=== PATIENT | male | born 1945 | race Caucasian/White ===

== ENCOUNTER 2016-12-30 11:23 | Emergency (ER) | payer MEDICARE, OTHER ==
--- NOTE | 2016-12-30 12:14 | Emergency Department Record ---
History of Present Illness - General Chief complaint: Rectal bleeding Stated complaint: RECTAL BLEEDING Time Seen by Provider: 12/30/16 12:00 Source: Patient Mode of Arrival: Ambulatory Limitations: No limitations - History of Present Illness Initial comments: The patient is here due to having rectal bleeding for 2 days. He has been having the bright red blood in the bowl and when he is wiping with BM's for the last 2 days. He denies any AP, nausea, vomiting, or dizziness. This morning he did have a lot of bright red blood when not having a BM and that was associated with lower abdominal cramping. The patient is not on any blood thinners and does take a baby ASA daily. He did have a similar problem about 2.5 years ago and had a Colonoscopy by Dr. Coley which demonstrated bleeding internal hemorrhoids. MD complaint: Blood on toilet paper, Blood streaked stool, Gross hematochezia Onset/Timin -: Days(s) Radiation: None Quality: Painless Improves with: None Worsens with: None Context: History of GI bleed Associated Symptoms: Abdominal pain - Related Data Home Medications Medication Instructions Recorded Confirmed Last Taken Citalopram Hydrobromide [Celexa] 10 mg PO QHS 04/27/14 12/30/16 12/29/16 Fluticasone Propionate [Flonase] 16 gm NS DAILY PRN 04/27/14 12/30/16 12/30/16 Metformin HCl [Metformin HCl] 1,000 mg PO BID 04/27/14 12/30/16 12/30/16 Metoprolol Succinate 50 mg PO QHS 04/27/14 12/30/16 12/29/16 Ramipril [Altace] 10 mg PO BID 04/27/14 12/30/16 12/30/16 Trazodone HCl 150 mg PO QHS 04/27/14 12/30/16 12/29/16 Hydrocodone/Acetaminophen 1 tab PO ASDIR PRN 05/22/14 12/30/16 12/30/16 [Hydrocodon-Acetaminophn 10-325] Aspirin [Aspirin EC] 325 mg PO DAILY 07/17/14 12/30/16 12/30/16 Multivitamin [Multi-Vitamin Daily] 1 each PO DAILY 11/09/14 04/24/17 04/24/17 Pyridoxine HCl [Vitamin B-6] 250 mg PO DAILY 07/17/14 12/30/16 12/30/16 Ibuprofen [Motrin 400Mg] 400 mg PO BID 12/30/16 12/30/16 12/30/16 Previous Rx's Medication Instructions Recorded Hydrocortisone Acetate [Anusol-Hc] 25 mg RC BID #20 supp.rect 12/30/16 Allergies Allergy/AdvReac Type Severity Reaction Status Date / Time ceftriaxone sodium Allergy HIVES Verified 07/17/14 08:03 [From Rocephin] ciprofloxacin Allergy HIVES Verified 07/17/14 08:03 hydromorphone HCl Allergy HIVES Verified 07/17/14 08:03 [From Dilaudid] Travel Screening - Travel/Exposure Within Last 30 Days Have you traveled within the last 30 days?: No - Travel/Exposure Within Last Year Have you traveled outside the [place] in the last year?: No - Additonal Travel Details Have you been exposed to anyone with a communicable illness?: No Review of Systems Constitutional: Denies: Chills, Fever Eyes: Denies: Eye discharge ENT: Denies: Congestion Respiratory: Denies: Cough, Dyspnea Past Medical History - SOCIAL HISTORY Smoking Status: Former smoker Alcohol Use: None Drug Use: None - RESPIRATORY Hx Respiratory Disorders: Yes Hx Bronchitis: Yes Hx Sleep Apnea: Yes Comment:: left lower lobe issues - CARDIOVASCULAR Hx Cardio Disorders: Yes Hx CHF: Yes Hx Heart Attack: Yes (x4) - NEURO Hx Neuro Disorders: No - GI Hx GI Disorders: No - Hx Genitourinary Disorders: No Hx Kidney Stones: Yes Comment:: recent 8 mm stone with sugery - ENDOCRINE Hx Endocrine Disorders: Yes Hx Diabetes: Yes (II) - MUSCULOSKELETAL Hx Musculoskeletal Disorders: Yes Hx Arthritis: Yes - PSYCH Hx Psych Problems: Yes Hx Depression: Yes - HEMATOLOGY/ONCOLOGY Hx Hematology/Oncology Disorders: No Family Medical History Any Significant Family History?: No Hx Cancer: Mother *Cancer Comment: breast cancer, brain tumor Hx Heart Disease: Father, Brother/Sister *Heart Comment: Father- CHF, Sister- CHF Physical Exam - General General Appearance: Alert, Oriented x3, Cooperative, No acute distress - Head Head exam: Atraumatic, Normocephalic, Normal inspection - Eye Eye exam: Normal appearance, PERRL - Neck Neck exam: Normal inspection, Full ROM. negative: Tenderness - Respiratory Respiratory exam: Normal lung sounds bilaterally. negative: Respiratory distress - Cardiovascular Cardiovascular Exam: Regular rate, Normal rhythm, Normal heart sounds - GI/Abdominal GI/Abdominal exam: Soft, Normal bowel sounds. negative: Distended, Guarding, Rebound, Rigid, Tenderness - Rectal Rectal exam: Heme (+) stool, Hemorrhoids (There are inflamed and bleeding internal hemorrhoids that are almost prolapsing out of the anus. That appears to be the source of his bleeding.) - Extremities Extremities exam: Normal inspection, Full ROM, Normal capillary refill. negative: Tenderness Course Vital Signs 12/30/16 11:46 Temperature 97.9 F Pulse Rate 60 Respiratory 20 Rate Blood Pressure 148/67 Pulse Ox 95 - Reevaluation(s) Reevaluation #1: The patient is doing very well at this time. He denies any pain or discomfort and is resting with no complaints. I did discuss the lab results and CT with the patient and family. If he continues to do well he will need an outpatient Colonoscopy later this week. 12/30/16 13:27 Reevaluation #2: The patient is doing very well at this time. He denies any AP, dizziness or weakness. He has not had any further bleeding in over 3 hours now. I did explain to him that I do feel the bleeding is most likely due to the internal hemorrhoids which is similar to the episode in 2014. I have been in contact with Dr. Coley who will be scheduling him for a Colonoscopy very soon. 12/30/16 14:18 Medical Decision Making - Data Complexity MDM Data: Labs Ordered and/or Reviewed, X-Ray Ordered and/or Reviewed - Lab Data Result diagrams: 12/30/16 12:27 12/30/16 12:27 - Radiology Data Radiology results: Report reviewed (CT: Mild descending colon diverticulosis with possible wall thickening in the rectum.) Disposition Disposition: Discharge Clinical Impression: Internal and external bleeding hemorrhoids Disposition: Home, Self-Care Condition: (1) Good Instructions: Rectal Bleeding (ED) Additional Instructions: Please take the Anusol HC as directed and hold your ASA for 7 days. Please follow up with Dr. Coley as directed for the Colonoscopy. Please return to the ER for any increased bleeding, or any AP, fever, weakness or dizziness. Prescriptions: Hydrocortisone Acetate [Anusol-Hc] 25 mg RC BID #20 supp.rect Forms: Patient Portal Access Time of Disposition: 14:26
[2016-12-30 12:37] LABS: BASO % 0.2 % (0-6); GRAN % 69.3 % (47-80); HEMATOCRIT 42.7 % (42.0-52.0); HEMOGLOBIN 13.9 gm/dl (14.0-18.0); LYMPH % 19.4 % (16-45); MEAN CORPUSCULAR HGB CONC 32.6 g/dl (32-36); MEAN PLATELET VOLUME 12.6 fl (7.4-10.4); MONO % 9.1 % (0-9); PLATELET COUNT 249 K/uL (130-400); RED CELL DISTRIBUTION WIDTH 13.9 % (11.5-14.5); WHITE BLOOD COUNT W/O DIFF 12.5 K/uL (4.2-12.2)
[2016-12-30 12:38] LABS: MEAN CORPUSCULAR HEMOGLOBIN 31.5 pg (27-33)
[2016-12-30 12:48] LABS: ALBUMIN 4.1 gm/dL (3.5-5.0); ALKALINE PHOSPHATASE 77 U/L (38-126); ALT/SGPT 29 U/L (21-72); ANION GAP 10.6 (7-16); AST/SGOT 30 U/L (17-59); BILIRUBIN,TOTAL 0.33 mg/dL (0.2-1.3); BLOOD UREA NITROGEN 18 mg/dL (9-20); CARBON DIOXIDE 25.4 mmol/L (22-30); CREATININE 0.5 mg/dL (0.66-1.25); EST GLOMERULAR FILTRATION RATE > 60 ml/min; GLUCOSE,RANDOM 149 mg/dL (70-110); INR 1.06; TOTAL PROTEIN 7.2 gm/dL (6.3-8.2)
== END 2016-12-30 14:39 | disposition home or self-care (01) ==
LOC: ER 11:23
DX: K64.8 Other hemorrhoids (principal); K64.9 Unspecified hemorrhoids; K92.1 Melena; R10.30 Lower abdominal pain, unspecified; I50.9 Heart failure, unspecified; I25.2 Old myocardial infarction; E11.9 Type 2 diabetes mellitus without complications; Z79.84 Long term (current) use of oral hypoglycemic drugs
CPT/HCPCS: 74176; 80048; 80076; 85025; 85610; 85730; 99283; 99284

== ENCOUNTER 2017-03-07 11:22 | Day surgery (SDC) | payer MEDICARE, OTHER ==
[2017-03-07] MEDS ORDERED: PROPOFOL 10 MG/ML VIAL IV ONE (15:16)
[2017-03-07] MEDS ORDERED: LIDOCAINE 2% MDV (20MG/ML) 20ML VIAL IV ONE (15:16)
--- NOTE | 2017-03-10 15:10 | Operative Note ---
DATE OF SURGERY: 03/07/2017 SURGEON: Altagracia Jimenez MD OPERATION: COLONOSCOPY. INDICATIONS: This is a 72-year-old male with history of intermittent episodes of rectal bleeding who presented for colonoscopy. POSTOPERATIVE DIAGNOSES: 1. Grade 2 internal hemorrhoids. 2. Otherwise normal colon. ANESTHESIA: Sedation is per Anesthesia. Pulse oximetry was monitored throughout the procedure to maintain O2 saturation of 90% or greater. Supplemental oxygen was administered via nasal cannula. Cardiac and vital signs were monitored throughout the duration of the procedure, and they were stable. The procedure of colonoscopy and risks and alternatives of the procedure, including the risk of bleeding and perforation, among others, were explained to the patient who voiced understanding and agreed to have the procedure done. Physical examination was performed, and the patient was found stable for sedation. PROCEDURE: The patient was placed in the left lateral position. Sedation was initiated. A digital rectal exam was performed and showed some mild external hemorrhoids with no palpable rectal masses. An Olympus PCF-180AL colonoscope was then inserted into the rectum under direct visualization. It was advanced to the cecum without difficulty. The ileocecal valve and appendiceal orifice were identified and photographed. The colonic mucosa was carefully examined upon introduction of the colonoscope. There were occasional diverticula noted in the sigmoid and descending colon. There were no other lesions noted. The ileocecal valve was intubated and the terminal ileal mucosa was inspected for about 10 cm and it appeared normal. The colonoscope was then withdrawn while carefully examining the colonic mucosal surfaces. No other lesions were noted. In the rectum, retroflexion was performed and grade 2 internal hemorrhoids were noted. The colonoscope was then withdrawn and the procedure was terminated. The patient tolerated the procedure well without any immediate complications. He remained with stable vital signs and was transferred to the recovery room. RECOMMENDATIONS: 1. The patient should be on a high-fiber diet. 2. The patient is to have a repeat colonoscopy in 10 years and he is to follow up with his surgeon for possible hemorrhoidectomy. Thank you for allowing me to participate in the care of your patient. Altagracia Jimenez MD CC: Avelino GRIJALVA
== END 2017-03-07 13:25 | disposition home or self-care (01) ==
LOC: HOP 11:22
PROVIDERS: ATTEND Internal Medicine Gastroenterology
DX: K92.1 Melena (principal); K64.1 Second degree hemorrhoids; E11.9 Type 2 diabetes mellitus without complications; Z79.84 Long term (current) use of oral hypoglycemic drugs; I10 Essential (primary) hypertension; E78.00 Pure hypercholesterolemia, unspecified

== ENCOUNTER 2018-03-01 19:48 | Emergency (ER) | payer MEDICARE, OTHER ==
[2018-03-01] MEDS ORDERED: LIDOCAINE IVP ONE (19:53)
--- NOTE | 2018-03-01 20:06 | Emergency Department Record ---
History of Present Illness - General Stated Complaint: DAVID Time Seen by Provider: 03/01/18 20:01 Source: Patient Mode of Arrival: Wheelchair Limitations: No limitations - History of Present Illness Initial Comments: 73 yo male presents to ED for evaluation of difficulty in breathing and palpitations that began approximately 8 hours ago, reports diaphoresis and chest pain symptoms as well. Patient reports a history of CAD s/p bypass surgery several years ago. MD Complaint: Palpitations, Rapid heart beat Onset/Timin -: Hour(s) Context: Occurred during rest Associated Symptoms: Chest pain, Diaphoresis - Related Data Previous Rx's Medication Instructions Recorded Hydrocortisone Acetate [Anusol-Hc] 25 mg RC BID #20 supp.rect 12/30/16 Allergies Allergy/AdvReac Type Severity Reaction Status Date / Time ceftriaxone sodium Allergy HIVES Verified 03/01/18 20:04 [From Rocephin] ciprofloxacin Allergy HIVES Verified 03/01/18 20:04 hydromorphone HCl Allergy HIVES Verified 03/01/18 20:04 [From Dilaudid] Review of Systems ROS unobtainable: Other Past Medical History - SOCIAL HISTORY Drug Use: None - RESPIRATORY Comment:: left lower lobe issues - CARDIOVASCULAR Hx Cardio Disorders: Yes Hx CHF: Yes Hx Heart Attack: Yes (x4) - NEURO Hx Neuro Disorders: No - GI Hx GI Disorders: No - Hx Genitourinary Disorders: No Comment:: recent 8 mm stone with sugery - ENDOCRINE Hx Endocrine Disorders: Yes Hx Diabetes: Yes (II) - MUSCULOSKELETAL Hx Musculoskeletal Disorders: Yes Hx Arthritis: Yes - PSYCH Hx Psych Problems: Yes Hx Depression: Yes - HEMATOLOGY/ONCOLOGY Hx Hematology/Oncology Disorders: No Family Medical History Hx Cancer: Mother *Cancer Comment: breast cancer, brain tumor Hx Heart Disease: Father, Brother/Sister *Heart Comment: Father- CHF, Sister- CHF Physical Exam - General General Appearance: Alert, Oriented x3, Cooperative, Severe distress, Other ( diaphoretic, ill-appearing on examination) Limitations: No limitations - Head Head exam: Atraumatic, Normocephalic, Normal inspection Head exam detail: negative: Abrasion, Contusion, Blackwood's sign, General tenderness, Hematoma, Laceration - Eye Eye exam: Normal appearance. negative: Conjunctival injection, Periorbital swelling, Periorbital tenderness, Scleral icterus - ENT Ear exam: negative: Auricular hematoma, Auricular trauma Nasal Exam: negative: Active bleeding, Discharge, Dried blood, Foreign body Mouth exam: negative: Drooling, Laceration, Muffled voice, Tongue elevation - Neck Neck exam: Normal inspection. negative: Meningismus, Tenderness - Respiratory Respiratory exam: Normal lung sounds bilaterally. negative: Rales, Respiratory distress, Rhonchi, Stridor - Cardiovascular Cardiovascular Exam: Tachycardia - GI/Abdominal GI/Abdominal exam: Soft. negative: Rebound, Rigid, Tenderness - Rectal Rectal exam: Deferred - exam: Deferred - Extremities Extremities exam: Normal inspection, Pedal edema. negative: Tenderness - Back Back exam: Denies: CVA tenderness (R), CVA tenderness (L) - Neurological Neurological exam: Alert, Normal gait, Oriented X3 - Psychiatric Psychiatric exam: Normal affect, Normal mood - Skin Skin exam: Normal color. negative: Abrasion Type of lesion: negative: abrasion Course - Reevaluation(s) Reevaluation #1: 03/01/18 20:01 03/01/18 19:59 Patient seen and examined, appears to be V-Tach EKG: Ventricular tachycardia 255 No further analysis is available. 19:52: Lidocaine 100 mg given IV over 1 minute 19:55: No change in rhythm, Amiodarone initiated at 150 mg over 10 minutes. Reevaluation #2: 03/01/18 20:04 Magnesium 2 grams ordered over 10 minutes. Reevaluation #3: 03/01/18 20:12 Patient became unreponsive, defibrillated at 200 joules to NSR with return of pulse Repeat EKG: NSR 85 ST elevation II, III, AVF ST depression I, AVL [place] 1-call contacted for STEMI activation Reevaluation #4: 03/01/18 20:20 Case was discussed with Dr. 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 Patient is awake, alert. ASA 324 and Heparin 500 units given IV Repeat EKG: NSR 79 ST elevation II, III, AVF Reciprocal changes I, AVL Awaiting EMS transfer. Reevaluation #5: 03/01/18 20:30 EMS is present for transfer to laborer steel handling. Patient and his family were updated on results and the plan of care as discussed. Medical Decision Making - Lab Data Result diagrams: 03/01/18 20:00 06/24/18 20:00 Critical Care Time Critical Care Time: Yes Total Critical Care Time: 35 Critical Care Time: Diagnosis and treatment of stable V-Tach, Unstable V-tach with Defibrillation, multiple EKG interpretations with diagnosis of acute inferior wall STEMI, treatment and initiation of transfer to [facility] fish hatchery laborer for STEMI. Disposition Disposition: Transfer Clinical Impression: V tach STEMI (ST elevation myocardial infarction) Qualifiers: Involved coronary artery: right coronary artery Qualified Code(s): I21.11 - ST elevation (STEMI) myocardial infarction involving right coronary artery Disposition: Acute Care Hospital Transfer Transfer To: [facility] Reason For Transfer: STEMI-laborer steel handling Accepting Physician: Mingo Time Discussed w/Accepting Physician: 20:15 Condition: (3) Guarded Forms: Patient Portal Access Time of Disposition: 20:15 Quality - Quality Measures Quality Measures: N/A - Blood Pressure Screening Does Patient Have Any of the Following: Active Dx of HTN Blood Pressure Classification: Pre-Hypertensive BP Reading Systolic Measurement: 130 Diastolic Measurement: 88 Screening for High Blood Pressure: Patient Exclusion, Hx of HTN [[id number]]
[2018-03-01 20:14] LABS: HEMATOCRIT 43.3 % (42.0-52.0); HEMOGLOBIN 15.2 gm/dl (14.0-18.0); MEAN CELL VOLUME 95.8 fl (81-97); MEAN CORPUSCULAR HEMOGLOBIN 33.6 pg (27-33); MEAN CORPUSCULAR HGB CONC 35.1 g/dl (32-36); MEAN PLATELET VOLUME 12.2 fl (7.4-10.4); PLATELET COUNT 210 K/uL (130-400); RED BLOOD COUNT 4.52 M/uL (4.40-5.70); RED CELL DISTRIBUTION WIDTH 13.9 % (11.5-14.5); WHITE BLOOD COUNT W/O DIFF 17.4 K/uL (4.2-12.2)
[2018-03-01] MEDS ORDERED: ASPIRIN 81 MG CHEWABLE TABLET PO ONE (20:15)
[2018-03-01] MEDS ORDERED: HEPARIN SODIUM 1000 UNIT/1 ML 10ML VIAL IVP ONE (20:15)
[2018-03-01] MEDS ORDERED: MAGNESIUM SULFATE 16 MEQ in 0.9 % SODIUM CHLORIDE 100ML 100 ML IV ONE (20:20)
[2018-03-01 20:23] LABS: BLOOD UREA NITROGEN 24 mg/dL (8-23); CREATININE 0.7 mg/dL (0.7-1.2); EST GLOMERULAR FILTRATION RATE > 60 mL/min; TOTAL PROTEIN 6.8 g/dL (6.6-8.7)
[2018-03-01] MEDS ORDERED: AMIODARONE 150MG/100ML BOLUS 150 MG/100 ML ML IV ONE (20:23)
[2018-03-01 20:25] LABS: GLUCOSE,RANDOM 239 mg/dL (74-109)
[2018-03-01 20:28] LABS: ALB/GLOB RATIO 1.3 (1.1-1.8); ALBUMIN 3.9 g/dL (4.0-5.0); ALKALINE PHOSPHATASE 95 U/L (40-129); ALT/SGPT 56 U/L (<41); AST/SGOT 62 U/L (10.0-50.0)
== END 2018-03-01 20:30 | disposition short-term general hospital (02) ==
LOC: ER 19:48
DX: I21.11 ST elevation (STEMI) myocardial infarction involving right coronary artery (principal); I47.2 Ventricular tachycardia; E11.9 Type 2 diabetes mellitus without complications; I50.9 Heart failure, unspecified; I25.2 Old myocardial infarction; Z87.891 Personal history of nicotine dependence; Z95.1 Presence of aortocoronary bypass graft
CPT/HCPCS: 80053; 84484; 85027; 93005; 93010; 96374; 96375; 99291; J3490

== ENCOUNTER 2019-08-12 09:45 | Day surgery (SDC) | payer MEDICARE, OTHER ==
[2019-08-12] MEDS ORDERED: LIDOCAINE 2% MDV (20MG/ML) 20ML VIAL IV ONE (09:46)
[2019-08-12] MEDS ORDERED: PROPOFOL 10 MG/ML VIAL IV ONE (09:46)
[2019-08-12] MEDS ORDERED: 0.9 % SODIUM CHLORIDE 1000ML 500 ML IV ONE (10:42)
[2019-08-12] MEDS ORDERED: EPINEPHRINE 1 MG/ML AMPUL IO ONE (11:18)
[2019-08-12] MEDS ORDERED: LIDOCAINE 2% MDV (20MG/ML) 20ML VIAL INJ ONE (11:18)
[2019-08-12] MEDS ORDERED: TETRACAINE HCL 0.5% OPTH 2ML SOLU OPTH ONE (11:18)
[2019-08-12] MEDS ORDERED: BRIMONIDINE TARTRATE 0.2% OPTHALMIC DROPS OP ONE (11:18)
[2019-08-12] MEDS ORDERED: TIMOLOL MALEATE 0.5% 5ML BTL OPTH ONE (11:18)
[2019-08-12] MEDS ORDERED: NEOM/BACI/POLY/HC 3.5 GM OPTH OINT OPTH ONE (11:18)
--- NOTE | 2019-08-12 14:09 | OP NOTE CHAMES ---
DATE OF PROCEDURE: 08/12/2019 PREOPERATIVE DIAGNOSIS: Nuclear sclerotic and posterior subcapsular cataract, right eye. POSTOPERATIVE DIAGNOSIS: Nuclear sclerotic and posterior subcapsular cataract, right eye. OPERATION: Phacoemulsification of cataractous lens with implantation of intraocular lens. LENS IMPLANT USED: [employer] Model PCB00 + 18.0 diopters. COMPLICATIONS: None. PROCEDURE IN DETAIL: Following a retrobulbar and facial block, the patient was prepped and draped in the usual fashion for eye surgery. A lid speculum was placed in the right eye after which a 2.4 mm tunnel wound was placed at the temporal limbus and dissected into clear cornea. A paracentesis was placed at 2 oclock hours to the left and right of the initial incision and the chamber deepened with Viscoelastic. The keratome was then used to enter the anterior chamber after which the continuous circular capsulorrhexis was accomplished without difficulty using a bent needle and a Utrata forceps. Hydrodissection and hydrodelineation of the lens was performed after which the nucleus of the lens was removed using the Phaco handpiece in the [id number] technique. The residual cortical material was irrigated and aspirated from the eye after which the bag and chamber were re-examined. The bag was re-inflated with Viscoelastic and the intraocular lens injected into the capsular bag where it centered well. The Viscoelastic was then copiously irrigated and aspirated from the eye after which the temporal tunnel wound and paracentesis were hydrated and the wounds were examined. They were noted to be watertight. The lid speculum was removed from the eye and the eye patched and shielded. The patient was transferred to the recovery room in satisfactory condition and given an appointment to be reexamined in the clinic later today or as directed by Dr. Rojas. JOB NUMBER: [id number] [facility]
== END 2019-08-12 12:09 | disposition home or self-care (01) ==
LOC: SUR 09:45
PROVIDERS: ATTEND Ophthalmology
DX: H25.11 Age-related nuclear cataract, right eye (principal); Z79.01 Long term (current) use of anticoagulants; E11.9 Type 2 diabetes mellitus without complications; E78.00 Pure hypercholesterolemia, unspecified; I48.91 Unspecified atrial fibrillation; Z95.1 Presence of aortocoronary bypass graft; I25.2 Old myocardial infarction; G47.33 Obstructive sleep apnea (adult) (pediatric)
CPT/HCPCS: J0171; J7030

== ENCOUNTER 2019-08-26 08:51 | Day surgery (SDC) | payer MEDICARE, OTHER ==
[2019-08-26] MEDS ORDERED: LIDOCAINE 2% MDV (20MG/ML) 20ML VIAL IV ONE (08:52)
[2019-08-26] MEDS ORDERED: PROPOFOL 10 MG/ML VIAL IV ONE (08:52)
[2019-08-26] MEDS ORDERED: 0.9 % SODIUM CHLORIDE 1000ML 500 ML IV ONE (09:30)
[2019-08-26] MEDS ORDERED: LIDOCAINE 2% MDV (20MG/ML) 20ML VIAL INJ ONE (10:52)
[2019-08-26] MEDS ORDERED: NEOM/BACI/POLY/HC 3.5 GM OPTH OINT OPTH ONE (10:52)
[2019-08-26] MEDS ORDERED: EPINEPHRINE 1 MG/ML AMPUL IO ONE (10:52)
[2019-08-26] MEDS ORDERED: TETRACAINE HCL 0.5% OPTH 2ML SOLU OPTH ONE (10:52)
[2019-08-26] MEDS ORDERED: BRIMONIDINE TARTRATE 0.2% OPTHALMIC DROPS OP ONE (10:53)
[2019-08-26] MEDS ORDERED: TIMOLOL MALEATE 0.5% 5ML BTL OPTH ONE (10:53)
--- NOTE | 2019-08-26 15:08 | OP NOTE CHAMES ---
DATE OF PROCEDURE: 08/26/2019 PREOPERATIVE DIAGNOSIS: Nuclear sclerotic and posterior subcapsular cataract, left eye. POSTOPERATIVE DIAGNOSIS: Nuclear sclerotic and posterior subcapsular cataract, left eye. OPERATION: Phacoemulsification of cataractous lens with implantation of intraocular lens. LENS IMPLANT USED: [employer] Model PCB00 + 17.5 diopters. COMPLICATIONS: None. PROCEDURE IN DETAIL: Following a retrobulbar and facial block, the patient was prepped and draped in the usual fashion for eye surgery. A lid speculum was placed in the left eye after which a 2.4 mm tunnel wound was placed at the temporal limbus and dissected into clear cornea. A paracentesis was placed at 2 oclock hours to the left and right of the initial incision and the chamber deepened with Viscoelastic. The keratome was then used to enter the anterior chamber after which the continuous circular capsulorrhexis was accomplished without difficulty using a bent needle and a Utrata forceps. Hydrodissection and hydrodelineation of the lens was performed after which the nucleus of the lens was removed using the Phaco handpiece in the [id number] technique. The residual cortical material was irrigated and aspirated from the eye after which the bag and chamber were re-examined. The bag was re-inflated with Viscoelastic and the intraocular lens injected into the capsular bag where it centered well. The Viscoelastic was then copiously irrigated and aspirated from the eye after which the temporal tunnel wound and paracentesis were hydrated and the wounds were examined. They were noted to be watertight. The lid speculum was removed from the eye and the eye patched and shielded. The patient was transferred to the recovery room in satisfactory condition and given an appointment to be reexamined in the clinic later today or as directed by Dr. oRjas. JOB NUMBER: [id number] [facility]
== END 2019-08-26 11:35 | disposition home or self-care (01) ==
LOC: SUR 08:51
PROVIDERS: ATTEND Ophthalmology
DX: H25.12 Age-related nuclear cataract, left eye (principal); Z79.01 Long term (current) use of anticoagulants; M19.90 Unspecified osteoarthritis, unspecified site; E11.9 Type 2 diabetes mellitus without complications; E78.00 Pure hypercholesterolemia, unspecified; Z95.1 Presence of aortocoronary bypass graft
CPT/HCPCS: 36416; 82948; J0171; J7030